=== PATIENT | male | born 1975 | race Caucasian/White ===

== ENCOUNTER 2020-05-04 13:05 | Emergency (ER) | payer OTHER ==
[~2020-05-04] VITALS: Ht 177.8 cm; Wt 112.5 kg
[2020-05-04 13:35] VITALS: Ht 177.8 cm; Wt 112.5 kg
[2020-05-04 15:47] LABS: BASOPHIL % 0.2 % (0-2); PLATELET COUNT 273 x10^3mcL (130-400); RED CELL DISTRIBUTION WIDTH 13.8 % (11.5-14.5)
[2020-05-04 15:55] LABS: CALCIUM 9.1 mg/dL (8.5-10.1); CHLORIDE SERUM 101 mmol/L (98-107); GFR1 > 60 mL/min; GLUCOSE SERUM 272 mg/dL (74-106); POTASSIUM SERUM 3.9 mmol/L (3.5-5.1); SODIUM SERUM 137 mmol/L (136-145)
[2020-05-04 16:30] VITALS: BP 158/95
== END 2020-05-04 16:30 | disposition home or self-care (01) ==
LOC: ED 13:05
PROVIDERS: Emergency Medicine
DX: K22.6 Gastro-esophageal laceration-hemorrhage syndrome (principal); F17.210 Nicotine dependence, cigarettes, uncomplicated; F31.9 Bipolar disorder, unspecified
CPT/HCPCS: Q0162